=== PATIENT | female | born 1995 | race Caucasian/White ===

== ENCOUNTER 2020-10-03 01:37 | Day surgery (SDC) | payer SELFPAY ==
[~2020-10-03] VITALS: Ht 129.5 cm; Wt 54.5 kg
[2020-10-03] VITALS (9 sets, daily range): BP systolic 115–170; BP diastolic 62–89
--- NOTE | 2020-10-03 02:17 | ED.ADGEN ---
General Adult EDM: Chief Complaint: SHOULDER INJURY HPI: HPI: Patient is a 25 year old female coming in for left shoulder pain. But towards prior to arrival she had tripped and caught herself with her left hand and felt a pop in her left shoulder. Is not taking anything for pain. No prior history of dislocations, had a scope on her right shoulder for arthritis. Review of Systems: Review of Systems: Constitutional: Denies fever or chills. [] Eyes: Denies change in visual acuity. [] HENT: Denies nasal congestion or sore throat. [] Respiratory: Denies cough or shortness of breath. [] Cardiovascular: Denies chest pain or edema. [] GI: Denies abdominal pain, nausea, vomiting, bloody stools or diarrhea. [] : Denies dysuria. [] Musculoskeletal: Denies back pain or joint pain. [] Integument: Denies rash. [] Neurologic: Denies headache, focal weakness or sensory changes. [] Endocrine: Denies polyuria or polydipsia. [] Lymphatic: Denies swollen glands. [] Psychiatric: Denies depression or anxiety. [] Current Medications: Current Medications Medications (Trade) Dose Ordered Sig/Felicitas Start Time Stop Time Status Last Admin Dose Admin Dexamethasone Sodium Phosphate (Decadron) 4 mg STK-MED ONCE 10/03/20 09:05 10/03/20 09:05 DC Fentanyl Citrate (Fentanyl 2ml Vial) 100 mcg STK-MED ONCE 10/03/20 09:07 10/03/20 09:08 DC Hydromorphone HCl (Dilaudid) 0.4 mg PRN Q10MIN PRN 10/03/20 07:45 10/03/20 20:07 DC 10/03/20 08:35 0.4 MG Ketamine HCl (Ketamine) 50 mg 1X ONCE 10/03/20 07:11 10/03/20 07:51 DC 10/03/20 07:11 50 MG Ketorolac Tromethamine (Toradol 15mg Vial) 15 mg 1X ONCE 10/03/20 08:00 10/03/20 08:01 DC 10/03/20 07:53 15 MG Lidocaine (Lidoderm) 1 patch DAILY 10/03/20 09:00 10/03/20 20:07 DC 10/03/20 08:09 1 PATCH Lidocaine HCl (Lidocaine 1% 20ml Vial) 20 ml STK-MED ONCE 10/03/20 06:34 10/03/20 06:35 DC Lidocaine HCl (Lidocaine 2% 20ml Vial) 20 ml STK-MED ONCE 10/03/20 03:09 10/03/20 03:10 DC Lidocaine HCl (Lidocaine Pf 2% Vial) 5 ml STK-MED ONCE 10/03/20 09:05 10/03/20 09:05 DC Midazolam HCl (Versed) 1 mg 1X ONCE 10/03/20 08:15 10/03/20 08:16 DC 10/03/20 08:10 1 MG Ondansetron HCl (Zofran) 4 mg STK-MED ONCE 10/03/20 09:05 10/03/20 09:05 DC Propofol (Diprivan) 200 mg STK-MED ONCE 10/03/20 09:05 10/03/20 09:06 DC Ropivacaine (Naropin 0.5%) 20 ml STK-MED ONCE 10/03/20 09:39 10/03/20 09:39 DC Succinylcholine Chloride (Anectine) 200 mg STK-MED ONCE 10/03/20 09:06 10/03/20 09:06 DC Allergies: Allergies: Allergies Coded Allergies Type Severity Reaction Last Updated Verified No Known Drug Allergies 10/03/20 No Physical Exam: PE: Constitutional: Well developed, well nourished, no acute distress, non-toxic appearance. [] HENT: Normocephalic, atraumatic, bilateral external ears normal, oropharynx moist, no oral exudates, nose normal. [] Eyes: PERRLA, EOMI, conjunctiva normal, no discharge. [] Neck: Normal range of motion, no tenderness, supple, no stridor. [] Cardiovascular:Heart rate regular rhythm, no murmur [] Lungs & Thorax: Bilateral breath sounds clear to auscultation [] Abdomen: Bowel sounds normal, soft, no tenderness, no masses, no pulsatile masses. [] Skin: Warm, dry, no erythema, no rash. [] Back: No tenderness, no CVA tenderness. [] Extremities: No tenderness, no cyanosis, no clubbing, ROM intact, no edema. [] Neurologic: Alert and oriented X 3, normal motor function, normal sensory function, no focal deficits noted. [] Psychologic: Affect normal, judgement normal, mood normal. [] Current Patient Data: Labs: Laboratory Tests Test 10/03/20 07:32 10/03/20 08:05 Coronavirus (PCR) Not detected (Not Detected) SARS-CoV-2 Antigen (Rapid) Negative (NEGATIVE) White Blood Count 7.6 x10^3/uL (4.0-11.0) Red Blood Count 3.34 x10^6/uL (3.50-5.40) L Hemoglobin 9.7 g/dL (12.0-15.5) L Hematocrit 29.4 % (36.0-47.0) L Mean Corpuscular Volume 88 fL (79-100) Mean Corpuscular Hemoglobin 29 pg (25-35) Mean Corpuscular Hemoglobin Concent 33 g/dL (31-37) Red Cell Distribution Width 14.4 % (11.5-14.5) Platelet Count 431 x10^3/uL (140-400) H Neutrophils (%) (Auto) 47 % (31-73) Lymphocytes (%) (Auto) 41 % (24-48) Monocytes (%) (Auto) 5 % (0-9) Eosinophils (%) (Auto) 5 % (0-3) H Basophils (%) (Auto) 1 % (0-3) Neutrophils # (Auto) 3.6 x10^3/uL (1.8-7.7) Lymphocytes # (Auto) 3.1 x10^3/uL (1.0-4.8) Monocytes # (Auto) 0.4 x10^3/uL (0.0-1.1) Eosinophils # (Auto) 0.4 x10^3/uL (0.0-0.7) Basophils # (Auto) 0.1 x10^3/uL (0.0-0.2) Prothrombin Time 14.2 SEC (11.7-14.0) H Prothrombin Time INR 1.1 (0.8-1.1) Activated Partial Thromboplast Time 33 SEC (24-38) Sodium Level 142 mmol/L (136-145) Potassium Level 4.1 mmol/L (3.5-5.1) Chloride Level 107 mmol/L (98-107) Carbon Dioxide Level 25 mmol/L (21-32) Anion Gap 10 (6-14) Blood Urea Nitrogen 14 mg/dL (7-20) Creatinine 0.6 mg/dL (0.6-1.0) Estimated GFR (Cockcroft-Gault) 119.9 Glucose Level 94 mg/dL (70-99) Calcium Level 8.4 mg/dL (8.5-10.1) L Serum Test, Qualitative Negative (NEG) Laboratory Tests 10/03/20 08:05 Laboratory Tests 10/03/20 08:05 Vital Signs: Vital Signs Date Time Temp Pulse Resp B/P (MAP) Pulse Ox O2 Delivery O2 Flow Rate FiO2 10/03/20 08:59 98 122 21 135/75 95 Room Air 98.0 10/03/20 08:35 4.0 EKG: EKG: [] Heart Score: Risk Factors: Risk Factors: DM, Current or recent (<one month) smoker, HTN, HLP, family history of CAD, obesity. Risk Scores: Score 0 - 3: 2.5% MACE over next 6 weeks - Discharge Home Score 4 - 6: 20.3% MACE over next 6 weeks - Admit for Clinical Observation Score 7 - 10: 72.7% MACE over next 6 weeks - Early Invasive Strategies Radiology/Procedures: Radiology/Procedures: IMAGING REPORT Signed PATIENT: CRISTY NAVARRO ACCOUNT: [id number] : 1995 LOCATION: ER AGE: 25 SEX: F EXAM STATUS: REG ER ORD. PHYSICIAN: JAMISON OLEA DO REASON: s/p reduction PROCEDURE: SHOULDER 2+V LEFT EXAM: AP and scapular Y views of the left shoulder DATE: 10/03/2020 7:41 AM INDICATION: Reason: s/p reduction / Spl. Instructions: / History: COMPARISON: Multiple radiographs 10/03/2020 FINDINGS: There is inferior subluxation of the left humerus relative to the glenoid with some overlap on both submitted images suggesting inferior subluxation/incomplete reduction. This may also be related to underlying capsuloligamentous laxity, prior injury to the static or dynamic stabilizers of the left shoulder or abnormal morphology of the glenoid. IMPRESSION: Inferior subluxation of the left humerus relative to the glenoid, suggesting incomplete reduction or underlying capsuloligamentous laxity, prior injury to the static or dynamic stabilizers of the left shoulder. Of note, CT can be performed following reduction to assess for underlying fractures although no obvious fracture is seen on the submitted images. Electronically signed by: Manpreet Santos MD (10/03/2020 8:04 AM) [facility] DICTATED and SIGNED BY: MANPREET SANTOS MD DATE: 10/03/20 0804 Indication: Left anterior shoulder dislocation Consent: I have discussed with the patient and/or the patient account manager sales representative the indication, alternatives, and the possible risks and /or complications of the planned procedure and the anesthesia methods. The patient and/or patient account manager sales representative appear to understand and agree to proceed. Pre-Sedation Documentation and Exam: Mallampati 4, last meal 7 PM yesterday Airway Assessment: normal. Prior History of Anesthesia Complications: none. Sedation/ Anesthesia Plan: Versed and ketamine Medications Used: see nursing notes. Monitoring and Safety: The patient was placed on a cardiac rn and vital signs, pulse oximetry and level of consciousness were continuously evaluated throughout the procedure. The patient was closely monitored until recovery from the medications was complete and the patient had returned to baseline status. Respiratory therapy was on standby at all times during the procedure. (The following sections must be completed) Post-Sedation Vital Signs: Hemodynamically stable Post-Sedation Exam: Pain O x3, GCS 15 Complications: Uncontrolled pain requiring additional fentanyl and Versed Indication: Left anterior shoulder dislocation Consent: Consent was obtained. Procedure: The pre-reduction exam showed distal perfusion and neurologic function to be normal.. The patient was placed in the appropriate position. Anesthesia/pain control with ketamine and Versed. Reduction of the left shoulder was performed by myself and assisted with medic. Post reduction films were obt ained and did not reveal satisfactory reduction. A post-reduction exam revealed distal perfusion and neurologic function to be normal. The affected area was immobilized with shoulder immobilizer. Complications: None successful reduction and postoperative pain. Neurovascularly intact with axillary nerve sensation intact. Course & Med Decision Making: Course & Med Decision Making Closed reduction done with procedural sedation with fentanyl and propofol, successful reduction with traction countertraction however shoulder redislocated after patient was adjusted for second x-ray. Discussed Dr. Alves and he suggests that another attempt at reduction return to the emergency department. Awaiting for half of the propofol, change. Patient care to Dr. Olea will reattempt reduction I received signout from Dr. Ramirez. Patient with unsuccessful left anterior- inferior shoulder reduction with fentanyl, propofol, and intra-articular lidocaine. Ortho recommended to repeat procedural sedation and attempt a second time. Second procedural sedation performed by myself approximately 2 hours after initial. Patient was sedated but briefly with maximum dosages of medications. Left shoulder reduction attempted for approximately 20 to 30 minut es with no success with counter traction and traction, Milch technique and external rotation. Unsuccessful reduction. Patient with significant pain after reduction requiring high doses of Dilaudid. Patient neurovascularly intact, axillary nerve sensation intact with strong radial pulse. Dr. Alves in ed will take pt to OR-does not want pt admitted. Dragon Disclaimer: Dragautumn Disclaimer: This electronic medical record was generated, in whole or in part, using a voice recognition dictation system. Departure Departure Impression: Primary Impression: Anterior dislocation of left shoulder Additional Impression: Failed moderate sedation during procedure Disposition: 05 DC/TRF OTHER TYPE INSTITUTI (transferred to OR with Dr. Alves) Referrals: NO PCP (PCP) Scripts No Active Prescriptions or Reported Meds Problem Qualifiers OWEN FIGUEROA MD Oct 03, 2020 02:17 JAMISON OLEA DO Oct 03, 2020 09:34
[2020-10-03] MEDS ORDERED: HYDROmorphone 2 MG/ML VIAL IM ONE (02:30)
[2020-10-03] MEDS ORDERED: LIDOCAINE 2% Multi-Dose 20 ML VIAL. ONE (03:09)
[2020-10-03] MEDS ORDERED: LIDOCAINE 2% Multi-Dose 20 ML VIAL. IJ ONE (03:15)
--- NOTE | 2020-10-03 03:23 | RAD ---
EXAM: LEFT SHOULDER 2 VIEWS. HISTORY: Dislocation. COMPARISON: None. FINDINGS: There is anteroinferior dislocation of the left humeral head. No fractures are identified. A 3.7 x 0.9 cm bump along the proximal humeral metaphysis is consistent with a benign osteochondroma. Acromioclavicular joint spaces and alignment are maintained. The left hemidiaphragm appears moderately elevated. IMPRESSION: 1. Anteroinferior dislocation of the left humeral head. Electronically signed by: Jayjay Garza MD (10/03/2020 3:20 AM) [facility]
[2020-10-03] MEDS ORDERED: PROPOFOL 10 MG/ML (20ML) VIAL. IV ONE ×2 (03:45→09:05)
[2020-10-03] MEDS ORDERED: fentaNYL PF VIAL 100 MCG/2 ML VIAL ONE ×3 (04:27→09:07)
--- NOTE | 2020-10-03 04:47 | RAD ---
EXAM: SHOULDER LEFT 1V. HISTORY: Dislocation reduction. COMPARISON: Today's prior study. FINDINGS: The left humeral head remains dislocated. Refer to the prior study for more information. IMPRESSION: 1. The left humeral head remains dislocated. Electronically signed by: Jayjay Garza MD (10/03/2020 4:44 AM) [facility]
--- NOTE | 2020-10-03 04:56 | RAD ---
EXAM: LEFT SHOULDER 2 VIEWS. HISTORY: Dislocation reduction. COMPARISON: Today's prior studies. FINDINGS: The humeral head appears reduced on the frontal projection. It appears to remain inferiorly subluxed on the Y view, but this may be projectional. No fractures are identified. IMPRESSION: 1. Reduction of the dislocation. No fracture. Refer to the prior studies for more information. Electronically signed by: Jayjay Garza MD (10/03/2020 4:53 AM) [facility]
[2020-10-03] MEDS ORDERED: HYDROmorphone 2 MG/ML VIAL ONE ×3 (04:59→11:18)
[2020-10-03] MEDS ORDERED: HYDROmorphone 2 MG/ML VIAL IVP ONE (05:45)
[2020-10-03] MEDS ORDERED: ONDANSETRON PF 4 MG/2 ML VIAL. ONE ×2 (06:12→09:05)
[2020-10-03] MEDS ORDERED: KETAMINE HCL 500 MG/10 ML VIAL. ONE (06:12)
[2020-10-03] MEDS ORDERED: MIDAZOLAM HCL/PF 5 MG/5 ML VIAL. ONE (06:12)
[2020-10-03] MEDS ORDERED: LIDOCAINE 1% Multi-Dose 20 ML VIAL. ONE (06:34)
[2020-10-03] MEDS ORDERED: fentaNYL PF VIAL 100 MCG/2 ML VIAL IVP ONE ×2 (06:45→07:29)
[2020-10-03] MEDS ORDERED: MIDAZOLAM HCL/PF 2 MG/2 ML VIAL. IV ONE (06:58)
[2020-10-03] MEDS ORDERED: KETAMINE HCL IN NACL, ISO-OSM 50 MG/5 ML SYRINGE IV ONE ×2 (06:59→07:11)
[2020-10-03] MEDS ORDERED: MIDAZOLAM HCL/PF 5 MG/5 ML VIAL. IV ONE ×2 (07:12→07:18)
--- NOTE | 2020-10-03 07:21 | RAD ---
SHOULDER LEFT 1V DATE: 10/03/2020 7:04 AM INDICATION: POST REDUCTION COMPARISON: 10/03/2020. FINDINGS: Bones: There is no evidence of acute fracture. Chronic proximal humerus fracture. Joints: Anterior glenohumeral dislocation. AC joint is maintained. Miscellaneous: No abnormal soft tissue calcifications in the shoulder. IMPRESSION: Recurrent anterior glenohumeral dislocation Electronically signed by: Enrique Pozo MD (10/03/2020 7:18 AM) [id number]
[2020-10-03] MEDS: HYDROmorphone 2 MG/ML VIAL IV PRN ×2 (07:40→08:35)
[2020-10-03] MEDS ORDERED: KETOROLAC 15 MG/ML VIAL. IVP ONE (08:00)
--- NOTE | 2020-10-03 08:07 | RAD ---
EXAM: AP and scapular Y views of the left shoulder DATE: 10/03/2020 7:41 AM INDICATION: Reason: s/p reduction / Spl. Instructions: / History: COMPARISON: Multiple radiographs 10/03/2020 FINDINGS: There is inferior subluxation of the left humerus relative to the glenoid with some overlap on both submitted images suggesting inferior subluxation/incomplete reduction. This may also be related to underlying capsuloligamentous laxity, prior injury to the static or dynamic stabilizers of the left shoulder or abnormal morphology of the glenoid. IMPRESSION: Inferior subluxation of the left humerus relative to the glenoid, suggesting incomplete reduction or underlying capsuloligamentous laxity, prior injury to the static or dynamic stabilizers of the left shoulder. Of note, CT can be performed following reduction to assess for underlying fractures although no obvious fracture is seen on the submitted images. Electronically signed by: Manpreet Gary MD (10/03/2020 8:04 AM) [facility]
[2020-10-03 08:14] LABS: BASO # 0.1 x10^3/uL (0.0-0.2); BASO % 1 % (0-3); EOS # 0.4 x10^3/uL (0.0-0.7); EOS % 5 % (0-3); HEMATOCRIT 29.4 % (36.0-47.0); HEMOGLOBIN 9.7 g/dL (12.0-15.5); LYMPH # 3.1 x10^3/uL (1.0-4.8); LYMPH % 41 % (24-48); MEAN CORPUSCULAR HEMOGLOBIN 29 pg (25-35); MEAN CORPUSCULAR HGB CONC 33 g/dL (31-37); MEAN CORPUSCULAR VOLUME 88 fL (79-100); MONO # 0.4 x10^3/uL (0.0-1.1); MONO % 5 % (0-9); NEUT # 3.6 x10^3/uL (1.8-7.7); NEUT % 47 % (31-73); PLATELET COUNT 431 x10^3/uL (140-400); RED BLOOD COUNT 3.34 x10^6/uL (3.50-5.40); RED CELL DISTRIBUTION WIDTH 14.4 % (11.5-14.5); WHITE BLOOD COUNT 7.6 x10^3/uL (4.0-11.0)
[2020-10-03] MEDS ORDERED: MIDAZOLAM HCL/PF 5 MG/5 ML VIAL. NS ONE (08:15)
[2020-10-03 08:24] LABS: CALCIUM 8.4 mg/dL (8.5-10.1); CREATININE 0.6 mg/dL (0.6-1.0); GFR 119.9; POTASSIUM 4.1 mmol/L (3.5-5.1)
[2020-10-03 08:35] LABS: PROTHROMBIN TIME PATIENT 14.2 SEC (11.7-14.0)
[2020-10-03 08:37] LABS: PREG TEST PT QUAL NEGATIVE (NEG)
[2020-10-03] MEDS ORDERED: LIDOCAINE (700MG/PATCH) PATCH. TD SCH (09:00)
[2020-10-03] MEDS ORDERED: LIDOCAINE 2% PF 5 ML VIAL. ONE (09:05)
[2020-10-03] MEDS ORDERED: DEXAMETHASONE SOD PHOS 4 MG/ML VIAL ONE (09:05)
[2020-10-03] MEDS ORDERED: SUCCINYLCHOLINE 200 MG/10 ML VIAL. ONE (09:06)
--- NOTE | 2020-10-03 09:18 | PDOC2 ---
CONSULT Date of Consult Date of Consult DATE: 10/03/20 TIME: 09:14 Reason for Consult Reason for Consult: Left shoulder dislocation Referring Physician Referring Physician: Maria Fernanda Identification/Chief Complaint Chief Complaint Left shoulder pain Source Source: Chart review, Patient History of Present Illness Reason for Visit: Patient is a very pleasant 25-year-old female with a history of achondroplasia who tells me she is normally flexible and had a ground-level fall last night noting immediate pain and inability to use her left arm secondary to shoulder pain. She feels some tingling over the dorsum of her hand and into her thenar webspace. Denies any other abnormal sensation. She has not any prior history of dislocations. She has had a left shoulder arthroscopic labral repair as well as a recent one in a couple of weeks ago on her right shoulder. This was done back home in [place]. She tells me she feels like her shoulders been doing just fine until this most recent event. She underwent 2 attempted closed reductions in the emergency department under sedation and IV pain medicine. Current Medications Current Medications Current Medications Hydromorphone HCl (Dilaudid) 1 mg 1X ONCE IM Last administered on 10/03/20at 02:31; Start 10/03/20 at 02:30; Stop 10/03/20 at 02:31; Status DC Lidocaine HCl (Lidocaine 2% 20ml Vial) 20 ml 1X ONCE IJ Last administered on 10/03/20at 03:21; Start 10/03/20 at 03:15; Stop 10/03/20 at 03:16; Status DC Lidocaine HCl (Lidocaine 2% 20ml Vial) 20 ml STK-MED ONCE .ROUTE ; Start 10/03/20 at 03:09; Stop 10/03/20 at 03:10; Status DC Propofol (Diprivan) 200 mg 1X ONCE IV Last administered on 10/03/20at 03:45; Start 10/03/20 at 03:45; Stop 10/03/20 at 03:46; Status DC Fentanyl Citrate (Fentanyl 2ml Vial) 100 mcg STK-MED ONCE .ROUTE ; Start 10/03/20 at 04:27; Stop 10/03/20 at 04:28; Status DC Hydromorphone HCl (Dilaudid) 2 mg STK-MED ONCE .ROUTE ; Start 10/03/20 at 04:59; Stop 10/03/20 at 04:59; Status DC Hydromorphone HCl (Dilaudid) 0.5 mg 1X ONCE IVP Last administered on 10/03/20at 06:01; Start 10/03/20 at 05:45; Stop 10/03/20 at 05:46; Status DC Ondansetron HCl (Zofran) 4 mg STK-MED ONCE .ROUTE ; Start 10/03/20 at 06:12; Stop 10/03/20 at 06:12; Status DC Midazolam HCl (Versed) 5 mg STK-MED ONCE .ROUTE ; Start 10/03/20 at 06:12; Stop 10/03/20 at 06:12; Status DC Ketamine HCl (Ketamine) 500 mg STK-MED ONCE .ROUTE ; Start 10/03/20 at 06:12; Stop 10/03/20 at 06:12; Status DC Lidocaine HCl (Lidocaine 1% 20ml Vial) 20 ml STK-MED ONCE .ROUTE ; Start 10/03/20 at 06:34; Stop 10/03/20 at 06:35; Status DC Fentanyl Citrate (Fentanyl 2ml Vial) 100 mcg STK-MED ONCE .ROUTE ; Start 10/03/20 at 07:25; Stop 10/03/20 at 07:26; Status DC Hydromorphone HCl (Dilaudid) 0.4 mg PRN Q10MIN PRN IV MODERATE TO SEVERE PAIN Last administered on 10/03/20at 08:35; Start 10/03/20 at 07:45; Stop 10/04/20 at 07:44 Ketorolac Tromethamine (Toradol 15mg Vial) 15 mg 1X ONCE IVP Last administered on 10/03/20at 07:53; Start 10/03/20 at 08:00; Stop 10/03/20 at 08:01; Status DC Midazolam HCl (Versed) 2 mg 1X ONCE IV Last administered on 10/03/20at 06:58; Start 10/03/20 at 06:58; Stop 10/03/20 at 07:51; Status DC Ketamine HCl (Ketamine) 50 mg 1X ONCE IV Last administered on 10/03/20at 06:59; Start 10/03/20 at 06:59; Stop 10/03/20 at 07:51; Status DC Ketamine HCl (Ketamine) 50 mg 1X ONCE IV Last administered on 10/03/20at 07:11; Start 10/03/20 at 07:11; Stop 10/03/20 at 07:51; Status DC Midazolam HCl (Versed) 0.5 mg 1X ONCE IV Last administered on 10/03/20at 07:12; Start 10/03/20 at 07:12; Stop 10/03/20 at 07:51; Status DC Fentanyl Citrate (Fentanyl 2ml Vial) 50 mcg 1X ONCE IVP Last administered on 10/03/20at 07:29; Start 10/03/20 at 07:29; Stop 10/03/20 at 07:51; Status DC Midazolam HCl (Versed) 0.5 mg 1X ONCE IV Last administered on 10/03/20at 07:18; Start 10/03/20 at 07:18; Stop 10/03/20 at 07:51; Status DC Midazolam HCl (Versed) 1 mg 1X ONCE NS Last administered on 10/03/20at 08:10; Start 10/03/20 at 08:15; Stop 10/03/20 at 08:16; Status DC Lidocaine (Lidoderm) 1 patch DAILY TD Last administered on 10/03/20at 08:09; Start 10/03/20 at 09:00 Fentanyl Citrate (Fentanyl 2ml Vial) 50 mcg 1X ONCE IVP Last administered on 10/03/20at 06:45; Start 10/03/20 at 06:45; Stop 10/03/20 at 08:15; Status DC Dexamethasone Sodium Phosphate (Decadron) 4 mg STK-MED ONCE .ROUTE ; Start 10/03/20 at 09:05; Stop 10/03/20 at 09:05; Status DC Ondansetron HCl (Zofran) 4 mg STK-MED ONCE .ROUTE ; Start 10/03/20 at 09:05; Stop 10/03/20 at 09:05; Status DC Lidocaine HCl (Lidocaine Pf 2% Vial) 5 ml STK-MED ONCE .ROUTE ; Start 10/03/20 at 09:05; Stop 10/03/20 at 09:05; Status DC Propofol (Diprivan) 200 mg STK-MED ONCE IV ; Start 10/03/20 at 09:05; Stop 10/03/20 at 09:06; Status DC Succinylcholine Chloride (Anectine) 200 mg STK-MED ONCE .ROUTE ; Start 10/03/20 at 09:06; Stop 10/03/20 at 09:06; Status DC Fentanyl Citrate (Fentanyl 2ml Vial) 100 mcg STK-MED ONCE .ROUTE ; Start 10/03/20 at 09:07; Stop 10/03/20 at 09:08; Status DC Active Scripts Active Reported No Known Medications Prior To Admisstion (Info) Each 1 Each Allergies Allergies: Coded Allergies: No Known Drug Allergies (Unverified , 10/03/20) ROS General: No: Chills, Night Sweats, Fatigue, Malaise, Appetite, Other PSYCHOLOGICAL ROS: No: Anxiety, Behavioral Disorder, Concentration difficultie, Decreased libido, Depression, Disorientation, Hallucinations, Hostility, Irritablity, Memory difficulties, Mood Swings, Obsessive thoughts, Physical abuse, Sexual abuse, Sleep disturbances, Suicidal ideation, Other Eyes: No Blurry vision, No Decreased vision, No Double vision, No Dry eyes, No Excessive tearing, No Eye Pain, No Itchy Eyes, No Loss of vision, No Photophobi a, No Scotomata, No Uses contacts, No Uses glasses, No Other HEENT: No: Heacaches, Visual Changes, Hearing change, Nasal congestion, Nasal discharge, Oral lesions, Sinus pain, Sore Throat, Epistaxis, Sneezing, Snoring, Tinnitus, Vertigo, Vocal changes, Other ALLERGY AND IMMUNOLOGY: No: Hives, Insect Bite Sensitivity, Itchy/Watery Eyes, Nasal Congestion, Post Nasal Drip, Seasonal Allergies, Other Hematological and Lymphatic: No: Bleeding Problems, Blood Clots, Blood Transfusions, Brusing, Night Sweats, Pallor, Swollen Lymph Nodes, Other ENDOCRINE: No: Breast Changes, Galactorrhea, Hair Pattern Changes, Hot Flashes, Malaise/lethargy, Mood Swings, Palpitations, Polydipsia/polyuria, Skin Changes, Temperature Intolerance, Unexpected Weight Changes, Other Respiratory: No: Cough, Hemoptysis, Orthopnea, Pleuritic Pain, Shortness of breath, SOB with excertion, Sputum Changes, Stridor, Tachypnea, Wheezing, Other Gastrointestinal: No Nausea, No Vomiting, No Abdominal Pain, No Diarrhea, No Constipation, No Melena, No Hematochezia, No Other Genitourinary: No Dysuria, No Frequency, No Incontinence, No Hematuria, No Retention, No Discharge, No Urgency, No Pain, No Flank Pain, No Other, No , No , No , No , No , No , No Musculoskeletal: Yes Joint Pain, Yes Joint Stiffness Neurological: No Behavorial Changes, No Bowel/Bladder ControlChng, No Confusion, No Dizziness, No Gait Disturbance, No Headaches, No Impaired Coord/balance, No Memory Loss, No Numbness/Tingling, No Seizures, No Speech Problems, No Tremors, No Visual Changes, No Weakness, No Other Skin: No Dry Skin, No Eczema, No Hair Changes, No Lumps, No Mole Changes, No Mottling, No Nail Changes, No Pruritus, No Rash, No Skin Lesion Changes, No Other, No Acne Physical Exam General: Oriented X3, Other (She is drowsy but answers and ask questions appropriately. Speech is clear.) HEENT: Atraumatic, EOMI Lungs: Other (Respirations are unlabored with symmetric chest rise) Heart: Regular rate Abdomen: Soft, No tenderness Extremities: No edema, Normal pulses Skin: No rashes Neuro: Normal speech, Strength at 5/5 X4 ext, Sensation intact Psych/Mental Status: Mental status NL, Mood NL MUSCULOSKELETAL: Other (Short stature. Fullness about her left shoulder. Her sensation is intact to light touch over her left deltoid region. Decreased subjective sensation distal radial nerve distribution but she is able to actively extend her fingers and wrist with good resistance. She hyperextends at he is not elbows, she is able to place her thumb on her forearm, she can hyperextended fifth digit.) Vitals VITALS Vital Signs Date Time Temp Pulse Resp B/P (MAP) Pulse Ox O2 Delivery O2 Flow Rate FiO2 10/03/20 08:35 13 Nasal Cannula 4.0 10/03/20 08:32 121 100 10/03/20 06:43 170/85 10/03/20 01:46 98.2 98.2 Labs Labs Laboratory Tests Test 10/03/20 07:32 10/03/20 08:05 SARS-CoV-2 Antigen (Rapid) Negative (NEGATIVE) White Blood Count 7.6 x10^3/uL (4.0-11.0) Red Blood Count 3.34 x10^6/uL (3.50-5.40) Hemoglobin 9.7 g/dL (12.0-15.5) Hematocrit 29.4 % (36.0-47.0) Mean Corpuscular Volume 88 fL (79-100) Mean Corpuscular Hemoglobin 29 pg (25-35) Mean Corpuscular Hemoglobin Concent 33 g/dL (31-37) Red Cell Distribution Width 14.4 % (11.5-14.5) Platelet Count 431 x10^3/uL (140-400) Neutrophils (%) (Auto) 47 % (31-73) Lymphocytes (%) (Auto) 41 % (24-48) Monocytes (%) (Auto) 5 % (0-9) Eosinophils (%) (Auto) 5 % (0-3) Basophils (%) (Auto) 1 % (0-3) Neutrophils # (Auto) 3.6 x10^3/uL (1.8-7.7) Lymphocytes # (Auto) 3.1 x10^3/uL (1.0-4.8) Monocytes # (Auto) 0.4 x10^3/uL (0.0-1.1) Eosinophils # (Auto) 0.4 x10^3/uL (0.0-0.7) Basophils # (Auto) 0.1 x10^3/uL (0.0-0.2) Prothrombin Time 14.2 SEC (11.7-14.0) Prothromb Time International Ratio 1.1 (0.8-1.1) Activated Partial Thromboplast Time 33 SEC (24-38) Sodium Level 142 mmol/L (136-145) Potassium Level 4.1 mmol/L (3.5-5.1) Chloride Level 107 mmol/L (98-107) Carbon Dioxide Level 25 mmol/L (21-32) Anion Gap 10 (6-14) Blood Urea Nitrogen 14 mg/dL (7-20) Creatinine 0.6 mg/dL (0.6-1.0) Estimated GFR (Cockcroft-Gault) 119.9 Glucose Level 94 mg/dL (70-99) Calcium Level 8.4 mg/dL (8.5-10.1) Serum Test, Qualitative Negative (NEG) Laboratory Tests Test 10/03/20 07:32 10/03/20 08:05 SARS-CoV-2 Antigen (Rapid) Negative (NEGATIVE) White Blood Count 7.6 x10^3/uL (4.0-11.0) Red Blood Count 3.34 x10^6/uL (3.50-5.40) Hemoglobin 9.7 g/dL (12.0-15.5) Hematocrit 29.4 % (36.0-47.0) Mean Corpuscular Volume 88 fL (79-100) Mean Corpuscular Hemoglobin 29 pg (25-35) Mean Corpuscular Hemoglobin Concent 33 g/dL (31-37) Red Cell Distribution Width 14.4 % (11.5-14.5) Platelet Count 431 x10^3/uL (140-400) Neutrophils (%) (Auto) 47 % (31-73) Lymphocytes (%) (Auto) 41 % (24-48) Monocytes (%) (Auto) 5 % (0-9) Eosinophils (%) (Auto) 5 % (0-3) Basophils (%) (Auto) 1 % (0-3) Neutrophils # (Auto) 3.6 x10^3/uL (1.8-7.7) Lymphocytes # (Auto) 3.1 x10^3/uL (1.0-4.8) Monocytes # (Auto) 0.4 x10^3/uL (0.0-1.1) Eosinophils # (Auto) 0.4 x10^3/uL (0.0-0.7) Basophils # (Auto) 0.1 x10^3/uL (0.0-0.2) Prothrombin Time 14.2 SEC (11.7-14.0) Prothromb Time International Ratio 1.1 (0.8-1.1) Activated Partial Thromboplast Time 33 SEC (24-38) Sodium Level 142 mmol/L (136-145) Potassium Level 4.1 mmol/L (3.5-5.1) Chloride Level 107 mmol/L (98-107) Carbon Dioxide Level 25 mmol/L (21-32) Anion Gap 10 (6-14) Blood Urea Nitrogen 14 mg/dL (7-20) Creatinine 0.6 mg/dL (0.6-1.0) Estimated GFR (Cockcroft-Gault) 119.9 Glucose Level 94 mg/dL (70-99) Calcium Level 8.4 mg/dL (8.5-10.1) Serum Test, Qualitative Negative (NEG) Images Images Multiple shoulder x-rays from emergency department care were reviewed Assessment/Plan Assessment/Plan Given the overall appearance of her most recent shoulder x-rays I think this may be more of a problem of lack of muscle tone at this point rather than a true dislocation, however the patient is in so much pain and feels like her shoulder is still out that we are unable to get any further imaging and therefore I felt the most prudent thing was to discuss the risks, benefits, alternatives to closed reduction in the OR as well as exam under anesthesia. AHMET ALEMAN II, MD Oct 03, 2020 09:18
--- NOTE | 2020-10-03 09:19 | PDOC4 ---
Operative Note Operative Note Date of procedure: 10/03/2020 Surgeon: Erick Aleman Reoperative diagnosis: Primary left shoulder dislocation Postoperative diagnosis: Same Procedure performed: Closed reduction, examination under anesthesia left glenohumeral joint Anesthesia: General Findings: Blood loss: None Reason for procedure: Patient is a very pleasant 25-year-old female with a history of achondroplasia who had her first shoulder dislocation late last night after a ground-level fall. Please see my consult note for further details. Description of procedure: Patient was greeted in the preoperative area where the correct extremity was verified and marked. She was taken back to the operative suite where she underwent successful induction of a general anesthetic. We then repositioned around the bed a little bit to be able to obtain fluoroscopy images and then performed a closed reduction maneuver using traction countertraction. She had smooth passive range of motion, full in all planes. I was not able to dislocate her with [id number]. C arm was used to verify reduced glenohumeral joint. She was placed back into a shoulder immobilizer and awakened from anesthesia. Transferred gently supine to the recovery room cart and taken to PACU in stable and extubated condition. Postoperative plan is to admit her for observation and pain control. She should be nonweightbearing left upper extremity. I would anticipate she can be discharged home tomorrow with follow-up in a week or 2 in orthopedics. ERICK ALEMAN II, MD Oct 03, 2020 09:19
[2020-10-03] MEDS ORDERED: ROPIVacaine 0.5% PF 20 ML VIAL. ONE (09:39)
[2020-10-03] MEDS: HYDROmorphone 2 MG/ML VIAL IVP PRN ×3 (10:40→11:20)
[2020-10-03] MEDS ORDERED: PROCHLORPERAZINE 10 MG/2 ML VIAL. ONE (11:10)
[2020-10-03] MEDS ORDERED: PROCHLORPERAZINE 10 MG/2 ML VIAL. IV ONE (11:30)
--- NOTE | 2020-10-03 11:47 | SSS ---
ADMIT DATE: 10/03/2020 CHIEF COMPLAINT: Left shoulder injury. HISTORY OF PRESENT ILLNESS: The patient is a pleasant 25-year-old female, who has achondroplasia dwarfism. Basically, she fell and dislocated her left shoulder. This has been a chronic problem for her. Dr. Alves approached me and explained the situation. We are going to admit the patient and he is going to take her to the OR for a closed reduction. In fact, she just came out of the OR; she is now receiving a pain block. I am examining the patient in the postop recovery area. PAST MEDICAL HISTORY: Achondroplasia dwarfism, chronic left shoulder displacements. ALLERGIES: None. FAMILY HISTORY: Diabetes. SOCIAL HISTORY: She does not drink, smoke or take drugs. MEDICATIONS: Reviewed, please refer to the MRAD. REVIEW OF SYSTEMS: Unable to obtain; the patient is sedated. PHYSICAL EXAMINATION: VITALS: Within normal limits and are stable. GENERAL: She is sedated. HEENT: Normocephalic, atraumatic. External auditory canals are patent. EYES: Extraocular muscles are intact, pupils are equally round and reactive to light and accommodation. MUSCULOSKELETAL: Well developed, well nourished, good range of motion. ENDOCRINE: No thyromegaly was palpated. LYMPHATICS: No cervical chain or axillary nodes were noted. HEMATOPOIETIC: No bruising. NECK: Supple, no JVD, no thyromegaly was noted. LUNGS: Clear to auscultation in all lung montanez without rhonchi or wheezing. HEART: RRR, S1, S2 present. Peripheral pulses intact, no obvious murmurs were noted. ABDOMEN: Soft, nontender. Positive bowel sounds no organomegaly, normal bowel sounds. EXTREMITIES: She has very short extremities. The left arm is in a splint. NEUROLOGIC: She is sedated. PSYCHIATRIC: Unobtainable. SKIN: No ulcerations or rashes, good skin turgor, no jaundice. VASCULAR: Good capillary refill, neurovascular bundle appears to be intact. LABORATORY DATA: White count 7, hemoglobin 9.7, platelets 431. Electrolytes are normal. INR is 1.1. COVID testing was negative. ASSESSMENT AND PLAN: Acute on chronic left shoulder dislocation, status post closed reduction. We are admitting the patient overnight for observation for pain management. I discussed the case with the anesthesiologist and the nurse. For now, we are using [email or web address].[email or web address]. Dilaudid. We have also placed a bupivacaine block. Once she wakes up, we will hope to advance her diet. Home meds, PT/OT, DVT prophylaxis. Full code. Hope to discharge in the morning if stable. JOSEL Sreedhar FRANK DO DR: VIANEY/audra JOB#: [id number] / [id number]
--- NOTE | 2020-10-03 11:55 | NUR ---
Pt arrived to unit via bed. Admission requirements in progress. Pt resting in bed with eyes closed with call light in reach.
[2020-10-03] MEDS ORDERED: oxyCODONE/APAP 5/325 1 TAB TABLET PO PRN (14:00)
[2020-10-03] MEDS ORDERED: MORPHINE SULFATE 2 MG/ML VIAL. IV PRN (14:00)
--- NOTE | 2020-10-03 16:00 | NUR ---
Pt explaining she wants to leave. Explained to pt she would be staying overnight for observation and pain management. Pt ask this RN to call doctor to get orders to d/c. This RN voiced understanding.
--- NOTE | 2020-10-03 17:55 | NUR ---
Discharge orders placed. Discharge instructions/medications discussed with pt. Explained to pt the need to f/u with Dr. Alves x 1-2 weeks. Discussed the importance of leaving immobilizer in place until f/u appt. Pt verbalized understanding. Explained to pt Tylenol 3 #30 is called into pharmacy of choice [facility] [address] [facility] [address], pt needs to clam picker medication for pain control. Pt verbalized understanding. Explained to pt to call this RN when ride is here to clam picker, this RN or MARKETING DEVELOPMENT MANAGER would walk pt out. Pt verbalized understanding.
--- NOTE | 2020-10-03 18:15 | NUR ---
This RN walked into pt room without seeing pt. Searched room. Hospital gown seen in bathroom floor, pt belongings out of room. Called nursing a p supervisor explaining situation. Advised to call number on file and ask pt to return to remove IV. Called number on file with no answer. Left message requesting pt to call hospital back.
== END 2020-10-03 16:07 | disposition home or self-care (01) ==
LOC: ER 01:37 → SURHOP 09:25 → 4 NORTH 09:45 → UNDOADMOB 09:45 → OR-ICU 09:49 → SURHOP 09:49 → ER 09:49 → SDC 09:49 → ER 10:04 → SURHOP 10:04 → OR-ICU 16:07 → SDC 16:07 → SURHOP 16:07 → ER 16:07 → UNDODISOB 18:15
PROVIDERS: ATTEND Internal Medicine
DX: S43.085A Other dislocation of left shoulder joint, initial encounter (principal); Z20.828 Contact with and (suspected) exposure to other viral communicable diseases; Z79.899 Other long term (current) drug therapy; Z98.890 Other specified postprocedural states; X58.XXXA Exposure to other specified factors, initial encounter; Y93.89 Activity, other specified; Y92.89 Other specified places as the place of occurrence of the external cause; Y99.8 Other external cause status
CPT/HCPCS: 23650; 73020; 73030; 76000; 80048; 84703; 85025; 85610; 85730; 87426; 96372; 96374; 96375; 96376; 99152; 99153; 99285; A7015; G0378; J0330; J0780; J1100; J1170; J1885; J2250; J2270; J2405; J2704; J2795; J3010; U0003; G0379; 99284-25

== ENCOUNTER 2022-02-12 01:05 | Inpatient (IN) | payer SELFPAY ==
[2022-02-12] VITALS (7 sets, daily range): BP systolic 100–136; BP diastolic 54–81
[~2022-02-12] VITALS: Ht 137.2 cm; Wt 56.0 kg
--- NOTE | 2022-02-12 01:35 | ED.ADGEN ---
Past Medical History Past Medical History: Other Additional Past Medical Histor: DWARFISM, Past Surgical History: Other Additional Past Surgical Histo: LAPROSCOPY FOR "ENDOMETRIOSIS" R SHOULDER ARTHROSCOPY Smoking Status: Never Smoker Alcohol Use: None General Adult EDM: Chief Complaint: SHOULDER INJURY HPI: HPI: Patient is a 26 year old female presenting with left shoulder pain. Patient states she had a mechanical fall slipped and cut her self with her left arm. [place] a pop in her left shoulder. Denies any other injuries loss consciousness. Patient states significant for previous left shoulder dislocation that required surgical intervention. Review of Systems: Review of Systems: All other systems within normal limits except for as noted in the HPI Current Medications: Current Medications Medications (Trade) Dose Ordered Sig/Felicitas Start Time Stop Time Status Last Admin Dose Admin Fentanyl Citrate (Fentanyl 2ml Vial) 75 mcg 1X ONCE 02/12/22 02:00 02/12/22 02:01 DC 02/12/22 02:07 75 MCG Hydromorphone HCl (Dilaudid) 1 mg 1X ONCE 02/12/22 03:00 02/12/22 03:02 DC 02/12/22 02:49 1 MG Propofol (Diprivan) 200 mg 1X ONCE 02/12/22 03:30 02/12/22 03:31 DC 02/12/22 03:50 200 MG Allergies: Allergies: Allergies Coded Allergies Type Severity Reaction Last Updated Verified No Known Drug Allergies 10/03/20 No Physical Exam: PE: Constitutional: Well developed, well nourished, no acute distress, non-toxic appearance. [] HENT: Normocephalic, atraumatic, bilateral external ears normal, nose normal. [] Eyes: PERRLA, conjunctiva normal, no discharge. [] Neck: No rigidity, supple, no stridor. [] Cardiovascular: Regular rate and rhythm, brisk cap refill [] Lungs & Thorax: Non labored symmetric respirations, no tachypnea or respiratory distress [] Abdomen: Soft, nondistended. Skin: Warm, dry, no erythema, no rash. [] Back: Unremarkable Extremities: No deformities, range of motion grossly intact, no lower extremity edema. Left shoulder. Anterior dislocation of left shoulder Neurologic: Alert and oriented X 3, no focal deficits noted. [] Psychologic: Affect normal, judgement normal, mood normal. [] Current Patient Data: Vital Signs: Vital Signs Date Time Temp Pulse Resp B/P (MAP) Pulse Ox O2 Delivery O2 Flow Rate FiO2 02/12/22 03:58 81 16 120/63 (82) 100 Nasal Cannula 3.0 02/12/22 03:34 98.6 98.6 EKG: EKG: [] Heart Score: C/O Chest Pain: No Risk Factors: Risk Factors: DM, Current or recent (<one month) smoker, HTN, HLP, family history of CAD, obesity. Risk Scores: Score 0 - 3: 2.5% MACE over next 6 weeks - Discharge Home Score 4 - 6: 20.3% MACE over next 6 weeks - Admit for Clinical Observation Score 7 - 10: 72.7% MACE over next 6 weeks - Early Invasive Strategies Radiology/Procedures: Radiology/Procedures: [facility] [address] [place] [address] IMAGING REPORT Signed PATIENT: CRISTY NAVARRO ACCOUNT: [id number] : 1995 LOCATION: ER AGE: 26 SEX: F EXAM STATUS: PRE ER ORD. PHYSICIAN: OWEN FIGUEROA MD REASON: dislocation PROCEDURE: SHOULDER 2+V LEFT left shoulder x-rays 2 views HISTORY: Shoulder dislocation. COMPARISON: Left shoulder x-rays October 03, 2020 FINDINGS: The AP film as well as a scapular Y film are both oblique and this so mewhat limits assessment of the glenohumeral alignment. In light of this there is persistent inferior subluxation of the humeral head relative to the glenoid similar to the prior exam. No fracture. Old deformity of the proximal humeral shaft is stable. No distraction of the acromioclavicular joint. IMPRESSION: Chronic/recurrent inferior subluxation of the humeral head relative to the glenoid similar to x-rays from October 2020. No fracture evident. Electronically signed by: Del Villatoro MD (02/12/2022 1:58 AM) [facility] DICTATED and SIGNED BY: DEL VILLATORO MD DATE: 02/12/22 [id number] [] Impression: Patient sedated with propofol. Closed reduction of left shoulder performed. Shoulder felt in the joint and range of motion intact. Shoulder redislocated while trying to put the immobilizer on. Patient was again sedated and closed reduction performed with physical exam consistent with reduction. Was called back to patient room due to increased pain. Patient was in the immobilizer however the shoulder show deformity consistent with recurrent dislocation. Consult placed to Dr. Tabares with orthopedics for operative reduction Course & Med Decision Making: Course & Med Decision Making Pertinent Labs and Imaging studies reviewed. (See chart for details) [] Dragon Disclaimer: Dragon Disclaimer: This electronic medical record was generated, in whole or in part, using a voice recognition dictation system. Departure Departure Impression: Primary Impression: Anterior dislocation of left shoulder Disposition: ADMITTED INPATIENT Admitting Physician: HIMS Condition: STABLE Referrals: NO PCP (PCP) Scripts Oxycodone/Apap 10-325 (PERCOCET 10-325 MG TABLET ) 1 Each Tablet 1 TAB PO PRN Q4-6HRS PRN for MODERATE TO SEVERE PAIN for 7 Days, #30 TAB Prov: FALLON SANDERSON MD 02/13/22 OWEN FIGUEROA MD Feb 12, 2022 01:35
[2022-02-12] MEDS ORDERED: fentaNYL PF VIAL 100 MCG/2 ML VIAL IVP ONE ×2 (02:00→04:30)
--- NOTE | 2022-02-12 02:00 | RAD ---
left shoulder x-rays 2 views HISTORY: Shoulder dislocation. COMPARISON: Left shoulder x-rays October 03, 2020 FINDINGS: The AP film as well as a scapular Y film are both oblique and this somewhat limits assessme nt of the glenohumeral alignment. In light of this there is persistent inferior subluxation of the hu meral head relative to the glenoid similar to the prior exam. No fracture. Old deformity of the proxi mal humeral shaft is stable. No distraction of the acromioclavicular joint. IMPRESSION: Chronic/recurrent inferior subluxation of the humeral head relative to the glenoid simila r to x-rays from October 2020. No fracture evident. Electronically signed by: Yann Villatoro MD (02/12/2022 1:58 AM) [facility]
[2022-02-12] MEDS ORDERED: HYDROmorphone 2 MG/ML INJ. IVP ONE ×3 (03:00→04:30)
[2022-02-12] MEDS ORDERED: PROPOFOL 10 MG/ML (20ML) VIAL. IV ONE (03:30)
[2022-02-12] MEDS ORDERED: HYDROmorphone 2 MG/ML INJ. IVP PRN (04:30)
[2022-02-12] MEDS ORDERED: ACETAMINOPHEN 325 MG TABLET. PO PRN ×2 (04:30→09:30)
[2022-02-12] MEDS ORDERED: ONDANSETRON PF 4 MG/2 ML VIAL. IVP PRN ×2 (04:30→09:30)
--- NOTE | 2022-02-12 04:30 | RAD ---
Left shoulder AP x-ray one view HISTORY: Reduction COMPARISON: Left shoulder x-rays February 13, 2020 FINDINGS: Images somewhat oblique across the glenoid and scapula similar to the prior exam. There is inferior positioning of the humeral head relative to the glenoid this is similar to the prior study. Old healed deformity of the proximal humeral shaft is stable. No significant change prior exam. IMPRESSION: Persistent inferior subluxation of the humeral head relative to the glenoid. The joint al ignment could be further characterized with CT imaging. Electronically signed by: Yann Villatoro MD (02/12/2022 4:28 AM) [facility]
--- NOTE | 2022-02-12 05:15 | NUR ---
Patient admitted from ER to room 442 per cart. Admitting diagnosis: Left shoulder dislocation. Patient tripped and fell forward. Patient stated that she used her arms to brace the fall and heard her left shoulder pop. Patient has had a left shoulder dislocation before and had to go to surgery to fix dislocation. Patient is alert and oriented x4. Patient has NKA. Patient is moderate amount of pain at this time. Will continue to monitor patient and give pain meds as ordered. Patient is NPO for possible surgical intervention later today.
[2022-02-12] MEDS: IV NORMAL SALINE 1000ML BAG 1,000 ML IV SCH (05:44)
[2022-02-12] MEDS: HYDROmorphone 2 MG/ML INJ. IVP PRN ×8 (07:45→23:51)
[2022-02-12] MEDS ORDERED: ZOLPIDEM 5 MG TABLET. PO PRN (09:30)
[2022-02-12] MEDS ORDERED: ELECTROLYTE (NON-ICU) PROTOCOL. MC PRN (09:30)
[2022-02-12] MEDS ORDERED: CALCIUM CARBONATE 500 MG TAB.CHEW PO PRN (09:30)
[2022-02-12] MEDS: SENNOSIDES/DOCUSATE 8.6/50MG TABLET. PO SCH ×2 (09:44→21:00)
--- NOTE | 2022-02-12 12:44 | NUR ---
SW following. Discussed with RN, pt from home with family, room air, NPO. Med Assist following for self pay status. RN advised no SW needs at this time. SW will continue to follow.
--- NOTE | 2022-02-12 12:56 | RAD ---
STUDY: 1. CT of the left upper extremity without contrast 2. CT 3D Reconstructions INDICATION: Shoulder dislocation. COMPARISON: Most recent radiographs from 02/12/2022. Numerous prior studies of the left shoulder. TECHNIQUE: Axial CT imaging of the left upper extremity/shoulder performed without contrast. Coronal and sagittal reformats were obtained. One or more of the following individualized dose reduction techniques were utilized for this examinat ion: 1. Automated exposure control 2. Adjustment of the mA and/or kV according to patient size 3. Use of iterative reconstruction technique. FINDINGS: Downward subluxation of the humeral head in respect to the glenoid without displacement in the anteri or or posterior direction. The superior margin of the humeral head is at the level of the mid glenoid . Multiple lucencies along the lower half of the glenoid indicating previous labral repair. Chronic b ester irregularity along the posterior lip of the glenoid. No acute glenoid fracture. The visualized hu merus is intact. Dysplastic configuration of the proximal humerus. Truncated scapular neck. No trauma tic malalignment across the acromioclavicular joints. The visualized ribs are intact. Shoulder joint effusion and fluid within the subacromial subdeltoid bursa. Rotator cuff muscular bulk is mostly maintained with minimal fatty infiltration of the subscapularis. No significant incidental finding involving the visualized left lung or left upper quadrant. IMPRESSION: 1. Downward subluxation of the humeral head in relation to the glenoid with the superior margin of t he humeral head at the mid glenoid. Chronic bony irregularity of the glenoid and humeral head on a ba ckground of previous labral repair. No acute fracture. 2. Joint effusion and fluid within the subacromial subdeltoid bursa. As has been described on compar hawk exams developmental irregularities of the scapula/glenoid and humerus. Electronically signed by: MAMADOU RIVERO MD (02/12/2022 12:54 PM) [id number]
--- NOTE | 2022-02-12 15:23 | PDOC2 ---
CONSULT Date of Consult Date of Consult DATE: 02/12/22 TIME: 15:13 Reason for Consult Reason for Consult: L shoulder dislocation Identification/Chief Complaint Chief Complaint L shoulder dislocation History of Present Illness Reason for Visit: Patient presented to the emergency room earlier this morning after having an injury to her left shoulder. She says that she was carrying laundry and fell. She caught herself with her arms outstretched. She had pain immediately and went to the ER at [facility]. She had closed reduction attempts that were unsuccessful per the emergency room physician. She was admitted to the hospital and orthopedics was asked to consult for left shoulder dislocation. At this time, the patient says that she is in extreme pain in the left shoulder and feels like it is out of place. She has been getting Dilaudid every 2 hours which is not helping with all of her pain. Her nurse reports that she is wanting it more often. She says that she feels like she has some numbness on the lateral aspect of the small finger. No radicular symptoms. No associated injuries. She has had a dislocation of her right shoulder about a year and a half ago. She says that she had a left shoulder labral repair done approximately 10 years ago in [place]. She has not had any problems with the left shoulder since that time. Past Medical History Past Medical History Achondroplastic Dwarf Past Surgical History Past Surgical History Left shoulder labral repair Exploratory laparotomy Family History Family History Noncontributory Social History Social History Patient denies any tobacco or alcohol use. No drug use. She works as a nanny. Current Problem List Problem List Problems Medical Problems: (1) Shoulder dislocation Status: Acute Current Medications Current Medications Patient reports no home medications Current Medications Fentanyl Citrate (Fentanyl 2ml Vial) 75 mcg 1X ONCE IVP Last administered on 02/12/22at 02:07; Start 02/12/22 at 02:00; Stop 02/12/22 at 02:01; Status DC Hydromorphone HCl (Dilaudid) 1 mg 1X ONCE IVP Last administered on 02/12/22at 02:49; Start 02/12/22 at 03:00; Stop 02/12/22 at 03:02; Status DC Propofol (Diprivan) 200 mg 1X ONCE IV Last administered on 02/12/22at 03:50; Start 02/12/22 at 03:30; Stop 02/12/22 at 03:31; Status DC Fentanyl Citrate (Fentanyl 2ml Vial) 75 mcg 1X ONCE IVP ; Start 02/12/22 at 04:30; Stop 02/12/22 at 04:31; Status DC Hydromorphone HCl (Dilaudid) 1 mg 1X ONCE IVP Last administered on 02/12/22at 04:12; Start 02/12/22 at 04:30; Stop 02/12/22 at 04:31; Status DC Hydromorphone HCl (Dilaudid) 0.5 mg 1X ONCE IVP Last administered on 02/12/22at 04:11; Start 02/12/22 at 04:15; Stop 02/12/22 at 04:17; Status DC Ondansetron HCl (Zofran) 4 mg PRN Q8HRS PRN IVP NAUSEA/VOMITING 1ST CHOICE; Start 02/12/22 at 04:30; Stop 02/13/22 at 04:29 Sodium Chloride 1,000 ml @ 50 mls/hr Q20H IV Last administered on 02/12/22at 05:44; Start 02/12/22 at 04:30; Stop 02/13/22 at 04:29 Acetaminophen (Tylenol) 650 mg PRN Q4HRS PRN PO FEVER > 100.3'F; Start 02/12/22 at 04:30; Stop 02/13/22 at 04:29 Hydromorphone HCl (Dilaudid) 1 mg PRN Q2HR PRN IVP SEVERE PAIN 7-10 Last administered on 02/12/22at 05:44; Start 02/12/22 at 04:30; Stop 02/12/22 at 07:27; Status DC Hydromorphone HCl (Dilaudid) 2 mg PRN Q2HR PRN IVP MODERATE TO SEVERE PAIN Last administered on 02/12/22at 13:51; Start 02/12/22 at 07:30 Ondansetron HCl (Zofran) 4 mg PRN Q6HRS PRN IVP NAUSEA/VOMITING; Start 02/12/22 at 09:30 Calcium Carbonate/ Glycine (Tums) 500 mg PRN Q3HRS PRN PO UPSET STOMACH; Start 02/12/22 at 09:30 Zolpidem Tartrate (Ambien) 5 mg PRN QHS PRN PO INSOMNIA, MAY REPEAT IN 1HR; Start 02/12/22 at 09:30 Info (Non-Icu Electrolyte Protocol) 1 ea PRN DAILY PRN MC SEE COMMENTS; Start 02/12/22 at 09:30 Acetaminophen (Tylenol) 650 mg PRN Q6HRS PRN PO Headaches, Temp > 101.5F; Start 02/12/22 at 09:30 Senna/Docusate Sodium (Senna Plus) 1 tab BID PO ; Start 02/12/22 at 10:00 Active Scripts Active No Active Prescriptions or Reported Medications Allergies Allergies: Coded Allergies: No Known Drug Allergies (Unverified , 10/03/20) ROS Review of System Patient denies any head trauma in her fall. No headache at this time. No blurry vision or double vision. No ringing in the ears or difficulty hearing. No difficulty swallowing. No thyroid problems or diabetes. No chest pain or shortness of breath. No abdominal pain. No constipation or diarrhea. No blood in the stool or urine. No dysuria. She says that she had issues with anxiety and depression when she was in middle school and had a problem with cutting herself but that resolved after that time and she has not had issues since. Physical Exam Physical Exam Patient is seen in the hospital bed. She is sitting up, crying. She has an immobilizer intact on her left upper extremity. She is right-hand dominant. The left shoulder has intact skin. She has 3 transverse scars on the lateral aspect of the proximal upper arm. She also has surgical scars noted anteriorly. All of these are well-healed without any signs of infection. Patient has severe tenderness to any light touch in the shoulder. She will not move her shoulder for exam. Neurovascularly intact in the hand. Vitals VITALS Vital Signs Date Time Temp Pulse Resp B/P (MAP) Pulse Ox O2 Delivery O2 Flow Rate FiO2 02/12/22 14:34 Room Air 02/12/22 11:00 97.8 91 16 120/66 (84) 97 97.8 02/12/22 04:[address] scan with 3D reconstruction shows inferior subluxation of the humeral head, without dislocation. No associated fractures are noted. Assessment/Plan Assessment/Plan Left shoulder injury with dislocation status post reduction in the emergency room, now with subluxation inferiorly without dislocation History of L shoulder labral repair Achondroplasia Plan: Discussed the CT findings with the patient today. She is very adamant that the shoulder is dislocated and wants to have it fixed right now. She says that if we won't help her, she will go somewhere else. Explained that we do have a shoulder specialist in our office but he doesn't come to this hospital and that he would be able to see her in our outpatient clinic. Discussed that she may have injured her previous surgical site but we can't tell that from a CT and that we would possibly get an MRI with arthrogram but we don't do that in the hospital. We let the shoulder have some time to rest and then we evaluate the need for the test in the outpatient clinic. Discussed that trying to do the arthrogram now would be very painful. Also, given the amount of pain that she is having, she most likely would not be able to complete an MRI so we would want to wait until she would have her pain under control enough to complete the exam. Her nurse reports that she is getting dilaudid IV every 2 hours and it doesn't seem to be helping her pain much and it doesn't seem to be having other side effects, most notably sedation. Discussed the plan with patient's nurse. She has been npo but may have a normal diet now as we are not planning any surgery during her hospital stay. She can also transition to oral medications. Discussed plan with Dr. Tabares as well who has reviewed the patient's films. Follow up in our outpatient clinic with Dr. Kc. Contact information was written on the patient's dry erase board with Dr. Kc's name. The patient is stable from an orthopedic standpoint to discharge. JONATHAN BLANC Feb 12, 2022 15:22
[2022-02-12] MEDS: oxyCODONE/APAP 10/325 1 TAB TABLET PO PRN (17:18)
--- NOTE | 2022-02-12 19:53 | PDOC1 ---
History and Physical Date of Service: DOS: DATE: 02/12/22 TIME: 19:53 Chief Complaint: Chief Complain: shoulder pain History of Present Illness: HPI: Patient is a 26-year-old female presented to the emergency room overnight due to a fall when she was carrying laundry. She said she slipped and fell with both of her arms outstretched. Immediately felt pain in her left shoulder. Presented to the emergency room where she was found to have dislocated shoulder. She has previously dislocated this left shoulder requiring surgical intervention a few years ago. Close reductions were attempted in the emergency room but unsuccessful patient patient was admitted for orthopedic evaluation and pain control When I evaluated the patient she was resting in bed almost tearful and how much pain she was in. Pending Ortho consult Past Medical/Surgical History: PMH/PSH: Past Medical History: DWARFISM, Past Surgical History: Other Additional Past Surgical Histo: LAPROSCOPY FOR "ENDOMETRIOSIS" R SHOULDER ARTHROSCOPY Smoking Status: Never Smoker Alcohol Use: None Allergies: Allergies: Coded Allergies: No Known Drug Allergies (Unverified , 10/03/20) Family History: Family History: Dwarfism Current Medications: Current Medications Current Medications Fentanyl Citrate (Fentanyl 2ml Vial) 75 mcg 1X ONCE IVP Last administered on 02/12/22at 02:07; Start 02/12/22 at 02:00; Stop 02/12/22 at 02:01; Status DC Hydromorphone HCl (Dilaudid) 1 mg 1X ONCE IVP Last administered on 02/12/22at 02:49; Start 02/12/22 at 03:00; Stop 02/12/22 at 03:02; Status DC Propofol (Diprivan) 200 mg 1X ONCE IV Last administered on 02/12/22at 03:50; Start 02/12/22 at 03:30; Stop 02/12/22 at 03:31; Status DC Fentanyl Citrate (Fentanyl 2ml Vial) 75 mcg 1X ONCE IVP ; Start 02/12/22 at 04:30; Stop 02/12/22 at 04:31; Status DC Hydromorphone HCl (Dilaudid) 1 mg 1X ONCE IVP Last administered on 02/12/22at 04:12; Start 02/12/22 at 04:30; Stop 02/12/22 at 04:31; Status DC Hydromorphone HCl (Dilaudid) 0.5 mg 1X ONCE IVP Last administered on 02/12/22at 04:11; Start 02/12/22 at 04:15; Stop 02/12/22 at 04:17; Status DC Ondansetron HCl (Zofran) 4 mg PRN Q8HRS PRN IVP NAUSEA/VOMITING 1ST CHOICE Last administered on 02/12/22at 19:24; Start 02/12/22 at 04:30; Stop 02/13/22 at 04:29 Sodium Chloride 1,000 ml @ 50 mls/hr Q20H IV Last administered on 02/12/22at 05:44; Start 02/12/22 at 04:30; Stop 02/13/22 at 04:29 Acetaminophen (Tylenol) 650 mg PRN Q4HRS PRN PO FEVER > 100.3'F; Start 02/12/22 at 04:30; Stop 02/13/22 at 04:29 Hydromorphone HCl (Dilaudid) 1 mg PRN Q2HR PRN IVP SEVERE PAIN 7-10 Last administered on 02/12/22at 05:44; Start 02/12/22 at 04:30; Stop 02/12/22 at 07:27; Status DC Hydromorphone HCl (Dilaudid) 2 mg PRN Q2HR PRN IVP MODERATE TO SEVERE PAIN Last administered on 02/12/22at 19:25; Start 02/12/22 at 07:30 Ondansetron HCl (Zofran) 4 mg PRN Q6HRS PRN IVP NAUSEA/VOMITING; Start 02/12/22 at 09:30 Calcium Carbonate/ Glycine (Tums) 500 mg PRN Q3HRS PRN PO UPSET STOMACH; Start 02/12/22 at 09:30 Zolpidem Tartrate (Ambien) 5 mg PRN QHS PRN PO INSOMNIA, MAY REPEAT IN 1HR; Start 02/12/22 at 09:30 Info (Non-Icu Electrolyte Protocol) 1 ea PRN DAILY PRN MC SEE COMMENTS; Start 02/12/22 at 09:30 Acetaminophen (Tylenol) 650 mg PRN Q6HRS PRN PO Headaches, Temp > 101.5F; Start 02/12/22 at 09:30 Senna/Docusate Sodium (Senna Plus) 1 tab BID PO ; Start 02/12/22 at 10:00 Oxycodone/ Acetaminophen (Percocet 10/325) 1 tab PRN Q4HRS PRN PO MODERATE TO SEVERE PAIN Last administered on 02/12/22at 17:18; Start 02/12/22 at 16:45 Active Scripts Active No Active Prescriptions or Reported Medications ROS: Review of Systems Review of System Unless noted in HPI 14 point review systems is negative Physical Exam: Vital Signs: Vital Signs Date Time Temp Pulse Resp B/P (MAP) Pulse Ox O2 Delivery O2 Flow Rate FiO2 02/12/22 19:25 20 91 Room Air 02/12/22 19:00 98.1 115 100/54 (69) 98.1 02/12/22 04:03 3.0 Physcial Exam: GEN: notable distress due to pain HEENT: Normal cephalic, atraumatic, external auditory canals are patent EYES: Extraocular muscles are intact, pupil are equally round and reactive to light and accommodation MUSCULOSKELETAL: Well developed , well nourished, limited ROM due to pain ENDOCRINE: No thyromegaly was palpated LYMPHATICS: No cervical chain or axillary nodes were noted HEMATOPOIETIC: No bruising NECK: Supple, no JVD, no thyromegaly was noted LUNGS: Clear to auscultation in all lung montanez without rhonchi or wheezing HEART: RRR, S1, S2 present. Peripheral pulses intact, no obvious murmurs noted ABDOMEN: Soft, nontender. Positive bowel sounds, no organomegaly, normal bowel sounds EXTREMITIES: Without clubbing, cyanosis, or edema. Pedal pulses intact. Negative Homans sign NEUROLOGIC: Normal speech and tone. A&O x 3, moves all extremities, no obvious focal deficits PSYCHIATRIC: Normal affect, normal mood. Stable SKIN: No ulcerations or rashes, good skin turgor, no jaundice VASCULAR: Good capillary refill, neurovascular bundle appears to be intact Assessment/Plan Assessment/Plan Left shoulder dislocation -Presented after fall resulting in left shoulder dislocation. Previously has had surgery on the shoulder. Unable to be reduced in the emergency room. -Patient admitted -IV pain control as needed -Ortho consult looks like CT scan ordered -Home meds as indicated -PT OT -Discussed with bedside RN Justifications for Admission Other Justification SUMEET BILLINGSLEY MD Feb 12, 2022 19:53
[2022-02-13] MEDS: IV NORMAL SALINE 1000ML BAG 1,000 ML IV SCH (00:30)
[2022-02-13] MEDS: HYDROmorphone 2 MG/ML INJ. IVP PRN ×4 (01:51→09:27)
[2022-02-13 03:00] VITALS: BP 105/54
[2022-02-13 07:00] VITALS: BP 102/52
[2022-02-13] MEDS: SENNOSIDES/DOCUSATE 8.6/50MG TABLET. PO SCH (07:34)
[2022-02-13] MEDS: oxyCODONE/APAP 10/325 1 TAB TABLET PO PRN (07:35)
--- NOTE | 2022-02-13 09:39 | PDOC ---
[facility] PROGRESS NOTE Date of Service DOS: DATE: 02/13/22 TIME: 09:33 Chief Complaint Chief Complaint Left shoulder dislocation/subluxation Left shoulder pain History of Present Illness History of Present Illness 02/13/2022: Patient still reports left shoulder pain. She feels that it is nondisplaced; possibly still subluxed. She will follow up with Dr. Kc, orthopedic shoulder specialist, in outpatient setting. States she lives with some friends who can help care for her total time. I will discharge her on pain medications to help transition to that appointment. Greater than 30 minutes spent managing the discharge of this patient. Vitals/I&O Vitals/I&O: Vital Signs Date Time Temp Pulse Resp B/P (MAP) Pulse Ox O2 Delivery O2 Flow Rate FiO2 02/13/22 09:27 16 97 Room Air 02/13/22 07:10 3.0 02/13/22 07:00 98.4 85 102/52 (69) 98.4 I & O 02/12/22 02/12/22 02/13/22 15:00 23:00 07:00 Intake Total 120 ml Output Total 250 ml Balance -130 ml Physical Exam General: Alert, Cooperative, mild distress Heart: Regular rate Lungs: Clear Abdomen: No masses Extremities: No clubbing, No cyanosis, Other (Left arm immobilizer inplace) Skin: No rashes Assessment and Plan Assessmemt and Plan Problems Medical Problems: (1) Shoulder dislocation Status: Acute Comment Review of Relevant I have reviewed the following items juanis (where applicable) has been applied. Medications: Current Medications Medications (Trade) Dose Ordered Sig/Felicitas Route PRN Reason Start Time Stop Time Status Last Admin Dose Admin Oxycodone/ Acetaminophen (Percocet 10/325) 1 tab PRN Q4HRS PRN PO MODERATE TO SEVERE PAIN 02/12/22 16:45 02/13/22 07:35 Justifications for Admission Other Justification FALLON SANDERSON MD Feb 13, 2022 09:39
--- NOTE | 2022-02-13 09:45 | PDOC3 ---
Discharge Summary Visit Information Date of Admission: Feb 12, 2022 Date of Discharge: Feb 13, 2022 Final Diagnosis Problems Medical Problems: (1) Shoulder dislocation Status: Acute Brief Hospital Course Allergies Allergies Coded Allergies Type Severity Reaction Last Updated Verified No Known Drug Allergies 10/03/20 No Vital Signs Vital Signs Date Time Temp Pulse Resp B/P (MAP) Pulse Ox O2 Delivery O2 Flow Rate FiO2 02/13/22 09:27 16 97 Room Air 02/13/22 07:10 3.0 02/13/22 07:00 98.4 85 102/52 (69) 98.4 Brief Hospital Course Ms. Murry is a 26 old female who presented with left shoulder dislocation. Consultation was placed with orthopedic surgery. ER was not able to entirely reduce. X-ray left shoulder showed persistent inferior subluxation of the humeral head relative to the glenoid. CT showed downward subluxation of the humeral head in relation to the glenoid with the superior margin of the humeral head at the mid glenoid. Patient felt left shoulder shoulder possibly sublux. Dr. Kc is orthopedic shoulder specialist who does not see patient in the hospital; he is willing to see her in his office. Will discharge her with pain medications to bridge to this appointment. Discharge Information Condition at Discharge: Stable Disposition/Orders: D/C to Home No Active Prescriptions or Reported Meds Justicifation of Admission Dx: Justifications for Admission: Justification of Admission Dx: Yes FALLON SANDERSON MD Feb 13, 2022 09:45
[2022-02-13] MEDS ORDERED: OXYC1TAB22 PO (09:51)
== END 2022-02-13 10:00 | disposition home or self-care (01) | DRG 563 ==
LOC: ER 01:05 → 4 NORTH 04:00
PROVIDERS: ADMIT Student in an Organized Health Care Education/Training Program; ATTEND Student in an Organized Health Care Education/Training Program
PROC: 0RSKXZZ Reposition Left Shoulder Joint, External Approach (ICD-10-PCS; principal; 2022-02-12)
DX: S43.015A Anterior dislocation of left humerus, initial encounter (principal); S43.012A Anterior subluxation of left humerus, initial encounter; W01.0XXA Fall on same level from slipping, tripping and stumbling without subsequent striking against object, initial encounter; Y93.89 Activity, other specified; Y92.89 Other specified places as the place of occurrence of the external cause; Y99.8 Other external cause status; Q77.4 Achondroplasia
CPT/HCPCS: 73020; 73030; 73200; 76377; 96374; 96375; 96376; J1170; J2405; J2704; J3010; J7030; 99285-25; G0378